=== PATIENT | male | born 1960 | race Two or more races ===

== ENCOUNTER 2024-08-18 14:37 | Outpatient (CLI) | payer BC | END 2024-08-18 14:44 | disposition home or self-care (01) | LOC: RAD 14:37 | DX: R53.83 Other fatigue (principal) ==

== ENCOUNTER 2024-09-29 07:53 | Outpatient (CLI) | payer BC | END 2024-09-29 08:00 | disposition home or self-care (01) | LOC: RAD 07:53 | DX: M79.674 Pain in right toe(s) (principal) ==